=== PATIENT | female | born 1995 | race Hispanic/Latino ===

== ENCOUNTER 2018-06-05 20:42 | Emergency (ER) | payer OTHER ==
[~2018-06-05] VITALS: Ht 160 cm; Wt 68.6 kg
[2018-06-05 21:35] LABS: BASO % 0.2 % (0.0-1.0); EOS # 0.1 10^3/uL (0.0-0.50); EOS % 0.5 % (0.0-3.0); HEMATOCRIT 39.1 % (36.0-47.0); HEMOGLOBIN 12.8 g/dl (12.0-15.5); LYMPH # 0.7 10^3/uL (1.5-6.5); LYMPH % 6.2 % (24.0-44.0); MEAN CORPUSCULAR HEMOGLOBIN 27.6 pg (27.0-33.0); MEAN CORPUSCULAR HGB CONC 32.7 g/dl (32.0-36.5); MEAN CORPUSCULAR VOLUME 84.3 fl (80.0-96.0); MONO # 0.7 10^3/uL (0.0-0.8); MONO % 5.8 % (0.0-5.0); NEUTROPHILS # 9.9 10^3/uL (1.8-7.7); NEUTROPHILS % 87.1 % (36.0-66.0); PLATELET COUNT, AUTOMATED 270 10^3/uL (150-450); RED BLOOD COUNT 4.64 10^6/uL (4.00-5.40); WHITE BLOOD COUNT 11.4 10^3/uL (4.0-10.0)
[2018-06-05 21:57] LABS: ALBUMIN 4.1 GM/DL (3.2-5.2); ALT/SGPT 33 U/L (12-78); BILIRUBIN,DIRECT 0.2 MG/DL (0.0-0.2); BILIRUBIN,TOTAL 1.1 MG/DL (0.2-1.0); BLOOD UREA NITROGEN 18 MG/DL (7-18); CALCIUM LEVEL 8.5 MG/DL (8.5-10.1); CARBON DIOXIDE LEVEL 31 MEQ/L (21-32); CHLORIDE LEVEL 104 MEQ/L (98-107); CREATININE FOR GFR 0.94 MG/DL (0.55-1.30); GLOMERULAR FILTRATION RATE > 60.0 (>60); GLUCOSE, FASTING 116 MG/DL (70-100); LIPASE 98 U/L (73-393); POTASSIUM SERUM 3.6 MEQ/L (3.5-5.1); SODIUM LEVEL 139 MEQ/L (136-145); TOTAL PROTEIN 7.7 GM/DL (6.4-8.2)
[2018-06-05] MEDS ORDERED: ONDANSETRON 4MG/2ML VIAL (J2405) IV ONE (22:45)
[2018-06-05] MEDS ORDERED: NS 1,000 ML IV ONE (22:45)
[2018-06-06] MEDS ORDERED: ONDA4TAB6 PO (00:45)
[2018-06-06 01:10] VITALS: BP 110/54
== END 2018-06-06 01:54 | disposition home or self-care (01) ==
LOC: M ED 20:42
DX: K52.9 Noninfective gastroenteritis and colitis, unspecified (principal)
CPT/HCPCS: 80048; 80076; 81001; 83690; 84702; 85025; 96361; 96374; 99284; J2405

== ENCOUNTER 2021-06-26 08:12 | Emergency (ER) | payer OTHER ==
[~2021-06-26] VITALS: Ht 157.5 cm; Wt 76.8 kg
[~2021-06-26 08:12] MED LIST: ONDA4TAB6 PO
[2021-06-26 08:14] VITALS: BP 154/109
== END 2021-06-26 08:24 | disposition left against medical advice (07) ==
LOC: M ED 08:12
DX: Z53.21 Procedure and treatment not carried out due to patient leaving prior to being seen by health care provider (principal)